=== PATIENT | male | born 1950 | race Caucasian/White ===

== ENCOUNTER → 2018-07-21 | Outpatient (CLI) | payer OTHER | LOC: RAD 16:02 | DX: J44.9 Chronic obstructive pulmonary disease, unspecified (principal); R60.9 Edema, unspecified ==

== ENCOUNTER → 2019-11-23 | Outpatient (CLI) | payer OTHER | LOC: SJCVC 13:54 | PROVIDERS: ATTEND Internal Medicine | DX: R94.31 Abnormal electrocardiogram [ECG] [EKG] (principal); I11.0 Hypertensive heart disease with heart failure; I50.32 Chronic diastolic (congestive) heart failure; I48.21 Permanent atrial fibrillation; G47.33 Obstructive sleep apnea (adult) (pediatric); E78.5 Hyperlipidemia, unspecified; F17.200 Nicotine dependence, unspecified, uncomplicated; Z79.01 Long term (current) use of anticoagulants ==

== ENCOUNTER → 2020-05-24 | Outpatient (CLI) | payer OTHER | LOC: SJCVC 13:36 | PROVIDERS: ATTEND Internal Medicine | DX: R94.31 Abnormal electrocardiogram [ECG] [EKG] (principal); I48.21 Permanent atrial fibrillation; I11.0 Hypertensive heart disease with heart failure; I50.32 Chronic diastolic (congestive) heart failure; G47.33 Obstructive sleep apnea (adult) (pediatric); E78.5 Hyperlipidemia, unspecified; F17.200 Nicotine dependence, unspecified, uncomplicated; Z79.01 Long term (current) use of anticoagulants; Z79.899 Other long term (current) drug therapy ==

== ENCOUNTER 2020-07-02 20:51 | Inpatient (IN) | payer OTHER ==
[~2020-07-02] VITALS: Ht 180.3 cm; Wt 120.4 kg
[2020-07-02 20:53] VITALS: BP 138/72
[2020-07-02] MEDS ORDERED: WIXELA 250-501 EACH INH (20:58)
[2020-07-02] MEDS ORDERED: FLOMAX0.4 MG PO (20:59)
[2020-07-02] MEDS ORDERED: COZAAR 25 MG TA25 M1 PO (21:02)
[2020-07-02] MEDS ORDERED: ELIQUIS5 MG PO (21:02)
[2020-07-02] MEDS ORDERED: DEMADEX20 MG PO (21:02)
[2020-07-02] MEDS ORDERED: LIPITOR 20 MG T20 M1 PO (21:02)
[2020-07-02] MEDS ORDERED: LEVO-T100 MCG PO (21:03)
[2020-07-02] MEDS ORDERED: PRAMIPEXOLE ER1.5 MG PO (21:04)
[2020-07-02] MEDS ORDERED: DILTIAZEM 24HR240 M1 PO (21:05)
[2020-07-02] MEDS ORDERED: METFORMIN HCL500 M3 PO (21:06)
[2020-07-02] MEDS ORDERED: FIBER0.4 GM PO (21:07)
[2020-07-02] MEDS ORDERED: POTASSIUM CIT-473 ML PO (21:08)
[2020-07-02] MEDS ORDERED: POTASSIUM CITR10 ME1 PO (21:11)
[2020-07-02] MEDS ORDERED: DESYREL150 MG PO (21:12)
[2020-07-02] MEDS ORDERED: ADVAIR 250-501 EACH INH (21:13)
[2020-07-02] MEDS ORDERED: BREO ELLIPTA 11 EACH INH (21:14)
[2020-07-02] MEDS ORDERED: VENTOLIN HFA 1818 GM INH (21:14)
[2020-07-02 21:24] LABS: ABSOLUTE NEUTROPHILS 4.6 thou/uL (1.4-8.2); BASOPHILS 0.2 % (0.0-2.0); EOSINOPHILS 3.4 % (0.0-3.0); HEMATOCRIT 42.9 % (42.0-52.0); HEMOGLOBIN 14.1 gm/dL (14.0-18.0); LYMPHOCYTES 13.7 % (24.0-44.0); MCH 33.7 pg (26.0-34.0); MCHC 32.9 g/dL (28.0-37.0); MCV 102.6 fL (80.0-100.0); MONOCYTES 9.5 % (1.0-8.0); PLATELET COUNT 156 thou/uL (150-400); POLYS 73.2 % (36.0-66.0); RBC 4.18 mil/uL (4.50-6.00); RDW 13.9 % (10.5-14.5); WBC 6.3 thou/uL (4.0-11.0)
[2020-07-02 21:28] LABS: CALCIUM 9.4 mg/dL (8.5-10.1); CREATININE 1.4 mg/dL (0.7-1.3); POTASSIUM 4.2 mmol/L (3.5-5.1)
[2020-07-02 21:50] LABS: TROPONIN-I 1.19 ng/mL (<0.06)
--- NOTE | 2020-07-02 22:24 | NUR ---
NOTIFIED OF PLAN OF CARE AT THIS TIME. UPDATED THAT PATIENT IS MUCH MORE COMFORTABLE NOW THAT HE HAS BEEN PLACED ON BIPAP. WILL CONTINUE TO KEEP UPDATED WITH TEST RESULTS.
[2020-07-02 23:19] LABS: BE(vivo) 1.4 mmol/L (-2 to +3); HCO3 26.8 mmol/L (22.0-26.0); pH 7.392 (7.360-7.450); sO2 98.7 % (92.0-98.0)
[2020-07-03 06:18] LABS: HEMOGLOBIN 13.2 gm/dL (14.0-18.0); RBC 3.91 mil/uL (4.50-6.00); RDW 13.8 % (10.5-14.5)
[2020-07-03 06:20] LABS: MCH 33.7 pg (26.0-34.0); MCHC 32.9 g/dL (28.0-37.0); MCV 102.5 fL (80.0-100.0); WBC 5.4 thou/uL (4.0-11.0)
[2020-07-03 06:28] LABS: CALCIUM 8.8 mg/dL (8.5-10.1); CREATININE 1.5 mg/dL (0.7-1.3); POTASSIUM 4.2 mmol/L (3.5-5.1); TROPONIN-I 0.37 ng/mL (<0.06)
[2020-07-03 09:06] VITALS: BP 112/78
[2020-07-03 14:39] VITALS: BP 114/72
[2020-07-03 15:34] VITALS: BP 112/79
[2020-07-03 15:55] VITALS: BP 111/62
--- NOTE | 2020-07-03 18:08 | NUR ---
PATIENT ADMIT TO UNIT AT 1615 FROM ER. A/O X4. UP AD SHAMIKA. NO DISDRESS NOTED. WILL KEEP MONITOR.
[2020-07-03 20:21] VITALS: BP 109/55
[2020-07-04 03:16] LABS: ABSOLUTE NEUTROPHILS 7.7 thou/uL (1.4-8.2); BASOPHILS 0.1 % (0.0-2.0); HEMATOCRIT 39.7 % (42.0-52.0); LYMPHOCYTES 6.1 % (24.0-44.0); MCH 33.5 pg (26.0-34.0); MCHC 32.8 g/dL (28.0-37.0); MONOCYTES 4.3 % (1.0-8.0); PLATELET COUNT 156 thou/uL (150-400); POLYS 89.5 % (36.0-66.0); RBC 3.89 mil/uL (4.50-6.00); RDW 13.5 % (10.5-14.5); WBC 8.6 thou/uL (4.0-11.0)
[2020-07-04 03:29] LABS: CREATININE 1.3 mg/dL (0.7-1.3); POTASSIUM 4.2 mmol/L (3.5-5.1)
[2020-07-04 03:56] LABS: ALBUMIN 3.4 g/dL (3.4-5.0); DIRECT BILIRUBIN 0.2 mg/dL (<0.1-0.2); TOTAL BILIRUBIN 0.9 mg/dL (0.2-1.0); TOTAL PROTEIN 6.2 g/dL (6.4-8.2)
[2020-07-04 04:04] VITALS: BP 121/74
[2020-07-04 07:15] VITALS: BP 122/63
--- NOTE | 2020-07-04 08:46 | NUR ---
ASSESSMENTS CHARTED, MEDS CHARTED GIVEN. PATIENT SHOWERED THIS MORNING READY TO MEET WITH DOCTORS IN THE MORNING. FALL PRECAUTIONS IN PLACE DURING SHIFT.
[2020-07-04] MEDS ORDERED: DEMADEX20 MG PO (09:03)
[2020-07-04] MEDS ORDERED: POTASSIUM CITR10 ME1 PO (09:03)
[2020-07-04 10:54] VITALS: BP 122/63
--- NOTE | 2020-07-04 11:12 | EKG ---
[address] [address] ELECTROCARDIOGRAM REPORT Name: SOO ROSENTHAL Room #: 210- ADM IN M.R.#: [id number] Admission: 07/02/20 Attend Phys: Dinorah Hilario MD Discharge: Date of : 46 Report #: [id number] [facility] ED Test Date: 2020-07-02 Test Time: 19:16:39 Pat Name: SOO ROSENTHAL Department: Room: 210 P Gender: M Passenger Service Agent: chaparro : 1950 Requested By: Scott Seals Order Number: [id number] MD: Kade Toledo Measurements Intervals [place] Rate: 70 P: 56 IA: 164 QRS: 56 QRSD: 91 T: 47 QT: 383 QTc: 414 Interpretive Statements Sinus rhythm Consider left atrial enlargement Baseline wander in lead(s) II No previous ECG available for comparison Electronically Signed On 07-04-2020 11:12:35 ENERGY CROP FARMER by Kade Toledo [email or web address] <ELECTRONICALLY SIGNED> By: Kade Toledo MD, [facility] 07/04/20 1112 15 15 Kade Toledo MD, FACC /EPI
--- NOTE | 2020-07-04 11:12 | EKG ---
[address] [address] ELECTROCARDIOGRAM REPORT Name: SOO ROSENTHAL Francois Room #: 210-P ADM IN M.R.#: [id number] Admission: 07/02/20 Attend Phys: Dinorah Hilario MD Discharge: Date of : 46 Report #: [id number] [facility] ED Test Date: 2020-07-02 Test Time: 21:23:40 Pat Name: SOO ROSENTHAL Department: Room: 210 Gender: M Black Topper: chaparro : 1950 Requested By: Scott Seals Order Number: [id number] MD: Kade Toledo Measurements Intervals [place] Rate: 95 P: [place]: QRS: -4 QRSD: 87 T: 175 QT: 339 QTc: 426 Interpretive Statements Atrial fibrillation Ventricular premature complex Low voltage, extremity leads Anteroseptal infarct, old Nonspecific T abnormalities, lateral leads No previous ECG available for comparison Electronically Signed On 07-04-2020 11:12:40 MATHEMATICS IMPROVEMENT TEACHER by Kade Toledo [email or web address] <ELECTRONICALLY SIGNED> By: Kade Toledo MD, [facility] 07/04/20 1112 22 22 Kade Toledo MD, FAC /EPI
--- NOTE | 2020-07-04 11:13 | EKG ---
[address] [address] ELECTROCARDIOGRAM REPORT Name: OSMARMARCRAMYASOO Hannah Room #: 210-P ADM IN M.R.#: [id number] Admission: 07/02/20 Attend Phys: Dinorah Hilario MD Discharge: Date of : 46 Report #: [id number] [facility] Test Date: 2020-07-04 Test Time: 07:31:02 Pat Name: SOO ROSENTHAL Department: Room: 210 P Gender: M Consulting Analyst: TIAGO : 1950 Requested By: Lasha Gomez Order Number: [id number] MD: Kade Toledo Measurements Intervals [place] Rate: 74 P: [place]: QRS: 22 QRSD: 92 T: 75 QT: 406 QTc: 451 Interpretive Statements Atrial fibrillation Low voltage, extremity leads Nonspecific T abnormalities, lateral leads No previous ECG available for comparison Electronically Signed On 07-04-2020 11:13:35 FLAVOR EXTRACTOR by Kade Toledo [email or web address] <ELECTRONICALLY SIGNED> By: Kade Toledo MD, [facility] 07/04/20 1113 0731 0 Kade Toledo MD, FACC /EPI
--- NOTE | 2020-07-04 11:51 | 2DMMODE ---
[facility] [place] [place] [address] 2 D/M-MODE ECHOCARDIOGRAM Name: SOO ROSENTHAL Room #: 210-P ADM IN [facility]#: [id number] Admission: 07/02/20 Attend Phys: Dinorah Hilario MD Discharge: Date of : 46 Report #: [id number] THIS REPORT FOR: cc: Luis Stephen MD, Rene P. MD Lundgren,Lasha Forrester MD [facility] ~ APPROVED REPORT Study performed: 07/04/2020 09:22:09 EXAM: Comprehensive 2D, Doppler, and color-flow Echocardiogram Patient Location: In-Patient Room #: 210 Status: routine BSA: 2.38 Other Information Study Quality: Good Risk Factors: Cardiac Risk Factors: HTN Indications Diabetes Dyspnea 2D Dimensions IVSd: 13.23 (7-11mm) LVOT Diam: 22.29 (18-24mm) LVDd: 53.26 mm PWd: 12.93 (7-11mm) Ascending Ao: 39.05 (22-36mm) LVDs: 37.29 (25-40mm) Left Atrium: 58.87 (27-40mm) Aortic Root: 37.20 mm LV Single Plane 4CH: 52.65 % Pizarro's LVEF: 55.00 % Volumes Left Atrial Volume (Systole) Single Plane 4CH: 67.14 mL Single Plane 2CH: 149.00 mL LA ESV Index: 47.00 mL/m2 Aortic Valve AoV Peak Nawaf.: 1.92 m/s [facility] [place] [address] 2 D/M-MODE ECHOCARDIOGRAM Name: SOO ROSENTHAL Room #: 210-P [facility] IN ..#: [id number] Admission: 07/02/20 Attend Phys: Dinorah Hilario, Discharge: Date of : 46 Report #: [id number] Peak Gr.: 14.73 mmHg LVOT Max P.10 mmHg AO Mean Gr.: 9.20 mmHg LVOT Mean P.17 mmHg AO V2 Mean: 1.42 m/s LVOT Max V: 1.13 m/s AO V2 VTI: 41.33 cm LVOT Mean V: 0.86 m/s JAGUAR (VTI): 2.29 cm2 LVOT V1 VTI: 24.24 cm JAGUAR Vmax: 2.29 cm2 SV (LVOT): 94.50 mL Mitral Valve MV Peak Gr.: 11.23 mmHg ERO: 20.96 mm2 MV Mean Gr.: 3.37 mmHg MV Max Nawaf.: 1.68 m/s MV Mean Nawaf.: 0.71 m/s MV VTI: 279.61 mm MVA VTI: 337.97 mm2 MR Radius: 0.42 cm MR Als. Nawaf: 1.02 m/s MR Flow: 112.02 mL/s Pulmonary Valve PV Peak Nawaf.: 1.01 m/s PV Peak Gr.: 4.06 mmHg Pulmonary Vein P Vein S: 0.35 m/s P Vein D: 0.36 m/s P Vein S/D Ratio: 0.97 Tricuspid Valve TR Peak Nawaf.: 2.93 m/s TR Peak Gr.: 34.25 mmHg RVSP: 44.00 mmHg PA Pressure: 10.00 mmHg Left Ventricle The left ventricle is normal size. There is normal LV segmental wall motion. Mild concentric left ventricular hypertrophy. The left ventricular systolic function is normal. The left ventricular ejection fraction is within the normal range. LVEF is 55-60%. Right Ventricle The right ventricle is normal size. The right ventricular systolic function is normal. Atria Left atrium is moderately dilated. Right atrium is dilated. Aortic Valve Aortic valve is mildly calcified, [place] [address] 2 D/M-MODE ECHOCARDIOGRAM Name: SOO ROSENTHAL Room #: 210-P [facility] IN [facility]#: [id number] Admission: 07/02/20 Attend Phys: Dinorah Hilario, Discharge: Date of : 46 Report #: [id number] regurgitation. There is no aortic valvular stenosis. Mitral Valve Moderate mitral annular calcification Moderate mitral regurgitation. No evidence of mitral valve stenosis. Tricuspid Valve The tricuspid valve is normal in structure. Mild to moderate tricuspid regurgitation. Pulmonic Valve Pulmonic valve is not well visualized. Trace pulmonic regurgitation. Great Vessels The aortic root is normal in size. IVC is normal in size and collapses >50% with inspiration. Pericardium There is no pericardial effusion. <Conclusion> The left ventricular systolic function is normal. There is normal LV segmental wall motion. LVEF is 55-60%. Both atria are moderately dilated. Aortic valve is mildly calcified, trileaflet. Mild aortic regurgitation, no stenosis. Moderate mitral annular calcification. Moderate mitral regurgitation. Pulmnary artery pressure could not be reliably ascertained. There is no pericardial effusion. <ELECTRONICALLY SIGNED> By: Lasha Gomez MD, FACC 07/04/20 1151 1151 1151 Lasha Gomez MD, FACC /INF
--- NOTE | 2020-07-04 14:01 | NUR ---
AAOX4. DISCHARGING TO HOME TODAY. DENIES CP, SOA. TELE PACK SECURED. SALINE LOCK DISCONTINUED.
[2020-07-05 00:06] LABS: GLYCOHEMOGLOBIN (HGB A1C) 6.2 % (4.8-5.6)
== END 2020-07-04 13:21 | disposition home or self-care (01) | DRG 280 ==
LOC: ER 20:51 → 2N 23:02 → EROBS 23:02 → 2N 07-03 15:31
PROVIDERS: Internal Medicine; Nurse Practitioner; ADMIT Internal Medicine; ATTEND Internal Medicine
DX: I21.4 Non-ST elevation (NSTEMI) myocardial infarction (principal); J96.21 Acute and chronic respiratory failure with hypoxia; I50.33 Acute on chronic diastolic (congestive) heart failure; J44.1 Chronic obstructive pulmonary disease with (acute) exacerbation; I48.21 Permanent atrial fibrillation; N17.9 Acute kidney failure, unspecified; I11.0 Hypertensive heart disease with heart failure; G25.81 Restless legs syndrome; G47.33 Obstructive sleep apnea (adult) (pediatric); E78.5 Hyperlipidemia, unspecified; E11.9 Type 2 diabetes mellitus without complications; E03.9 Hypothyroidism, unspecified; I25.10 Atherosclerotic heart disease of native coronary artery without angina pectoris; N40.0 Benign prostatic hyperplasia without lower urinary tract symptoms; E66.9 Obesity, unspecified; Z20.822 Contact with and (suspected) exposure to COVID-19; Z68.37 Body mass index [BMI] 37.0-37.9, adult; Z79.01 Long term (current) use of anticoagulants; Z79.899 Other long term (current) drug therapy; Z79.84 Long term (current) use of oral hypoglycemic drugs; Z88.8 Allergy status to other drugs, medicaments and biological substances
CPT/HCPCS: 10081

== ENCOUNTER → 2020-08-04 | Outpatient (CLI) | payer OTHER ==
[~2020-08-04] MED LIST: ADVAIR 250-501 EACH INH; BREO ELLIPTA 11 EACH INH; COZAAR 25 MG TA25 M1 PO; DEMADEX20 MG PO; DESYREL150 MG PO; DILTIAZEM 24HR240 M1 PO; ELIQUIS5 MG PO; FIBER0.4 GM PO; FLOMAX0.4 MG PO; LEVO-T100 MCG PO; LIPITOR 20 MG T20 M1 PO; METFORMIN HCL500 M3 PO; POTASSIUM CIT-473 ML PO; POTASSIUM CITR10 ME1 PO; PRAMIPEXOLE ER1.5 MG PO; VENTOLIN HFA 1818 GM INH; WIXELA 250-501 EACH INH
== END ==
LOC: SJCVC 11:23
PROVIDERS: ATTEND Internal Medicine
DX: I48.91 Unspecified atrial fibrillation (principal); R94.31 Abnormal electrocardiogram [ECG] [EKG]; I50.32 Chronic diastolic (congestive) heart failure; I48.21 Permanent atrial fibrillation; I10 Essential (primary) hypertension; G47.33 Obstructive sleep apnea (adult) (pediatric); E78.5 Hyperlipidemia, unspecified; Z79.01 Long term (current) use of anticoagulants; Z87.891 Personal history of nicotine dependence; Z72.89 Other problems related to lifestyle; Z79.82 Long term (current) use of aspirin; Z79.899 Other long term (current) drug therapy; Z88.1 Allergy status to other antibiotic agents; Z96.653 Presence of artificial knee joint, bilateral; Z90.89 Acquired absence of other organs; Z98.890 Other specified postprocedural states

== ENCOUNTER → 2020-08-12 | Outpatient (CLI) | payer OTHER | LOC: SJCVCIMAG 08:50 | PROVIDERS: ATTEND Internal Medicine | DX: R06.00 Dyspnea, unspecified (principal); I48.91 Unspecified atrial fibrillation; E78.5 Hyperlipidemia, unspecified; I11.0 Hypertensive heart disease with heart failure; I50.9 Heart failure, unspecified; Z87.891 Personal history of nicotine dependence; Z79.899 Other long term (current) drug therapy; Z79.01 Long term (current) use of anticoagulants; Z88.1 Allergy status to other antibiotic agents ==

== ENCOUNTER → 2020-11-24 | Outpatient (CLI) | payer OTHER | LOC: SJCVCIMAG 08:24 | PROVIDERS: ATTEND Internal Medicine | DX: I08.3 Combined rheumatic disorders of mitral, aortic and tricuspid valves (principal); R94.31 Abnormal electrocardiogram [ECG] [EKG]; I48.21 Permanent atrial fibrillation; I11.0 Hypertensive heart disease with heart failure; I50.32 Chronic diastolic (congestive) heart failure; G47.33 Obstructive sleep apnea (adult) (pediatric); E78.5 Hyperlipidemia, unspecified; Z90.49 Acquired absence of other specified parts of digestive tract; Z88.8 Allergy status to other drugs, medicaments and biological substances; Z79.01 Long term (current) use of anticoagulants; Z79.899 Other long term (current) drug therapy; Z87.891 Personal history of nicotine dependence ==

== ENCOUNTER → 2021-05-26 | Outpatient (CLI) | payer OTHER | END | disposition home or self-care (01) | LOC: SJCVC 10:07 | PROVIDERS: ATTEND Internal Medicine | DX: I48.21 Permanent atrial fibrillation (principal); R94.31 Abnormal electrocardiogram [ECG] [EKG]; I11.0 Hypertensive heart disease with heart failure; I50.32 Chronic diastolic (congestive) heart failure; G47.33 Obstructive sleep apnea (adult) (pediatric); E78.5 Hyperlipidemia, unspecified; R06.02 Shortness of breath; E05.00 Thyrotoxicosis with diffuse goiter without thyrotoxic crisis or storm; Z96.651 Presence of right artificial knee joint; Z96.652 Presence of left artificial knee joint; Z79.899 Other long term (current) drug therapy; Z79.84 Long term (current) use of oral hypoglycemic drugs; Z98.890 Other specified postprocedural states ==

== ENCOUNTER 2021-06-10 21:37 | Emergency (ER) | payer OTHER ==
[~2021-06-10] VITALS: Ht 177.8 cm; Wt 117.9 kg
[2021-06-10 22:54] LABS: ABSOLUTE NEUTROPHILS 4.1 thou/uL (1.4-8.2); BASOPHILS 0.3 % (0.0-2.0); EOSINOPHILS 2.2 % (0.0-3.0); HEMATOCRIT 42.2 % (42.0-52.0); HEMOGLOBIN 13.9 gm/dL (14.0-18.0); MCH 34.2 pg (26.0-34.0); MCHC 32.9 g/dL (28.0-37.0); MCV 103.8 fL (80.0-100.0); MONOCYTES 9.4 % (1.0-8.0); PLATELET COUNT 130 thou/uL (150-400); POLYS 76.1 % (36.0-66.0); RBC 4.07 mil/uL (4.50-6.00); RDW 14.7 % (10.5-14.5); WBC 5.3 thou/uL (4.0-11.0)
[2021-06-10 22:58] LABS: CALCIUM 8.6 mg/dL (8.5-10.1); CREATININE 1.3 mg/dL (0.7-1.3)
[2021-06-10 23:08] LABS: TOTAL BILIRUBIN 0.8 mg/dL (0.2-1.0); TOTAL PROTEIN 6.3 g/dL (6.4-8.2)
[2021-06-11 02:39] VITALS: BP 131/69
== END 2021-06-11 02:41 | disposition home or self-care (01) ==
LOC: ER 21:37
PROVIDERS: Emergency Medicine
DX: S01.01XA Laceration without foreign body of scalp, initial encounter (principal); Z20.822 Contact with and (suspected) exposure to COVID-19; R06.00 Dyspnea, unspecified; D68.318 Other hemorrhagic disorder due to intrinsic circulating anticoagulants, antibodies, or inhibitors; I11.0 Hypertensive heart disease with heart failure; I50.9 Heart failure, unspecified; E11.9 Type 2 diabetes mellitus without complications; J44.9 Chronic obstructive pulmonary disease, unspecified; E03.9 Hypothyroidism, unspecified; E78.5 Hyperlipidemia, unspecified; Z79.51 Long term (current) use of inhaled steroids; Z79.899 Other long term (current) drug therapy; Z79.891 Long term (current) use of opiate analgesic; Z79.1 Long term (current) use of non-steroidal anti-inflammatories (NSAID); Z88.8 Allergy status to other drugs, medicaments and biological substances; W01.0XXA Fall on same level from slipping, tripping and stumbling without subsequent striking against object, initial encounter; Y93.89 Activity, other specified; Y92.89 Other specified places as the place of occurrence of the external cause; Y99.8 Other external cause status